=== PATIENT | female | born 1945 | race African-American/Black ===

== ENCOUNTER → 2018-01-16 | Outpatient (CLI) | payer BC ==
--- NOTE | 2018-01-16 18:39 | KCIC ---
DEXA scan 01/16/2018 Clinical History: Estrogen deficiency. Postmenopausal female. Technique: DEXA of the lumbar spine and left hip was performed. FINDINGS: No previous studies are available for comparison. The bone mineral density of the lumbar spine is 1.260 G/cm2 which corresponds with a T-score of 1.9 . This is within normal limits. The mean bone mineral density of the left hip is 1.060 g/sq cm. This corresponds to a T score of 1.0. This is within normal limits. By World [employer] on Osteoporosis criteria, a T score of 0 to-1 SD is considered to be within normal limits. A T score of -1 to -2.5 SD is considered osteopenia. A T score less than -2.5 SD is considered osteoporosis Impression: The patient's mean bone mineral densities are within normal limits. Electronically signed by: Brooks Godwin MD (01/16/2018 6:35 PM) [id number]
--- NOTE | 2018-02-05 09:29 | KCIC ---
Bilateral digital screening mammograms with 3-D tomosynthesis: Reason for examination: Routine screening. No previous examinations available for comparison. New baseline. Bilateral mammograms in CC and oblique projections were obtained with 2-D imaging and 3-D tomosynthesis imaging on a Siemens Inspiration unit and reviewed on the workstation. Interpretation was made with the benefit of CAD. The skin and nipples show no abnormalities. No abnormal axillary lymph nodes are seen. The breast parenchyma shows scattered fatty and fibroglandular density. (Breast density: Category B.) There are nodular densities suggested anteriorly in the right breast and approximately the subareolar 12:00 position of the right breast and at the 10:00 position anteriorly in the right breast. Recommend further evaluation with ultrasound. There are no other dominant masses, suspicious calcifications or architectural distortion. Benign calcifications are present. Impression: Small nodular parenchymal densities suggested anteriorly in the right breast at the 12:00 and 10:00 positions. Recommend further evaluation with ultrasound. BI-RADS Category 0: Incomplete: Need additional imaging evaluation. "Our facility is accredited by the [employer] Mammography [employer]." This patient's information has been entered into a reminder system for the patient to be notified with the results of her examination and a target date for the next mammogram. Electronically signed by: Jacquelin Heath MD (02/05/2018 9:25 AM) [id number]
== END | disposition home or self-care (01) ==
LOC: MERGE 09:42 → KCIC MAMMO 09:42
PROVIDERS: ATTEND Family Medicine
DX: Z12.31 Encounter for screening mammogram for malignant neoplasm of breast (principal); Z13.820 Encounter for screening for osteoporosis; Z78.0 Asymptomatic menopausal state
CPT/HCPCS: 77063; 77067; 77080

== ENCOUNTER → 2018-02-15 | Outpatient (CLI) | payer BC ==
--- NOTE | 2018-02-15 12:37 | KCIC ---
Right breast diagnostic ultrasound HISTORY: Asymmetric tissue density: On January 16, 2018 mammogram Sonographic sedation was performed of the upper-outer breast multiple static images were obtained There is a small mass in the 10:00 right breast 2 cm nipple which measures 4 mm x 4 mm x 3 mm. It has irregular margins and a shadowing and taller than wide. There is an area of heterogeneity in the 10:00 right breast 6 centers nipple without a discrete mass. IMPRESSION: 1. Recommend ultrasound-guided biopsy of mass 10:00 right breast 2 centers nipple. 2. Nonspecific findings 6 cm from the nipple recommend 6 month follow-up ultrasound and mammogram. These results were given to the patient in person. The patient and the clinical service will be contacted by the radiologist staff for further instructions. BI-RADS Category 4: Suspicious. Electronically signed by: Sebastián Gomez III, MD (02/15/2018 12:32 PM) [id number]
== END | disposition home or self-care (01) ==
LOC: KCIC US 10:41
PROVIDERS: ATTEND Family Medicine
DX: N63.11 Unspecified lump in the right breast, upper outer quadrant (principal)
CPT/HCPCS: 76641

== ENCOUNTER → 2018-02-28 | Outpatient (CLI) | payer BC ==
[~2018-02-28] MED LIST: LIDOCAINE 2%/EPI 1:100,000 20 ML VIAL. IJ ONE
--- NOTE | 2018-03-08 09:45 | RAD ---
Ultrasound-guided right breast biopsy, 02/28/2018: History: Suspicious sonographic finding A previous study demonstrated a tiny suspicious right breast nodule at the 10:00 location in the periareolar region. Under local anesthesia, aseptic conditions and sonographic guidance the ? biopsy instrument was passed along the posterior margin of this lesion. Multiple 12-gauge vacuum-assisted core samples were obtained and sent to pathology for evaluation. A biopsy marker was then deposited at the biopsy site. The biopsy instrument was then removed and hemostasis obtained. Two-view postprocedural digital mammograms were then obtained to document position of the biopsy marker. A small hematoma was evident at the biopsy site on these mammograms. The patient tolerated the procedure well and left the department in good condition. The subsequent path report indicated the presence of epithelial hyperplasia and apocrine metaplasia. 6 month mammographic and sonographic follow-up is suggested, as also recommended on the 02/15/2018 ultrasound exam.
== END | disposition home or self-care (01) ==
LOC: US 13:39
PROVIDERS: ATTEND Family Medicine
DX: N60.81 Other benign mammary dysplasias of right breast (principal); N60.11 Diffuse cystic mastopathy of right breast; N60.01 Solitary cyst of right breast; I10 Essential (primary) hypertension; Z79.01 Long term (current) use of anticoagulants; F17.200 Nicotine dependence, unspecified, uncomplicated
CPT/HCPCS: 19083; 77065; 88305; C1713; 19085; 76942